=== PATIENT | female | born 1960 | race Caucasian/White ===

== ENCOUNTER 2016-11-17 19:07 | Emergency (ER) | payer OTHER ==
[2016-11-17 19:14] VITALS: TEMP 97.7
--- NOTE | 2016-11-17 19:30 | EDPHY ---
H & P Time Seen by Provider: 11/17/16 19:21 HPI/ROS: CHIEF COMPLAINT: Ladder impact to right maxilla HISTORY OF PRESENT ILLNESS: 56-year-old female no anticoagulant use arrives via private vehicle after she was taken down a ladder and impacted her right zygomatic arch/maxilla. She is complaining of blood in mouth, tenderness with chewing and biting down. No orbital injury. No visual disturbance. No loss of consciousness. No amnesia. No alcohol or drug use. No midline C-spine pain. No headache. No peripheral paresthesia, weakness, numbness. Tetanus is up-to- date REVIEW OF SYSTEMS: A ten point review of systems was performed and is negative with the exception of the items mentioned in the HPI PAST MEDICAL/SURGICAL HISTORY: no anticoagulant use, no relevant medical/ surgical history SOCIAL HISTORY: denies alcohol use at time of incident PHYSICAL EXAM 1) GENERAL: Well-developed, well-nourished, alert and oriented. Appears to be in no acute distress. Answering questions appropriately. 2) HEAD: Normocephalic, atraumatic 3) HEENT: Pupils equal, round, reactive to light bilaterally. Negative Horners. Nasopharynx, oropharynx, clear. No deformity or angulation of nose. No septal hematoma. Right zygomatic arch abrasion and superficial laceration. No rhinorrhea. No oral trauma. Ears bilaterally with normal tympanic membranes. No hemotympanum. No fluid or blood in the external auditory canal. No raccoon eyes. No Wong sign. She has tenderness to palpation of the right maxilla when she is biting down. Teeth are normally aligned. There is a 0.5 cm cm laceration at the junction of the right maxillary be you cool mucosa and gingival mucosal junction 4) NECK: No cervical collar is on. Posterior cervical spine is nontender, no stepoff, no effusion. Full range of motion which does not elicit any midline cervical spine pain, no posterior midline tenderness, no step-off. 5) LUNGS: Clear to auscultation bilaterally, no wheezes, no rhonchi, no retractions. No obvious signs of trauma. No chest wall pain. No flaring, no grunting. Moving symmetrically. No crepitus. 6) HEART: Regular rate and rhythm, 7) ABDOMEN: No guarding, no rebound, no focal tenderness, no peritoneal signs, no signs of trauma, no ecchymosis 8) MUSCULOSKELETAL: Moving all extremities, no focal areas of tenderness, no obvious trauma. 9) BACK: No midline vertebral tenderness, no fluctuance, no step-off, no obvious trauma, no visual or palpable abnormality. 10) SKIN: right cheek abrasion lacerationn DIFFERENTIAL DIAGNOSIS: [in no particular include but limited to orbital fracture, sinus fracture, zygomatic fracture Constitutional: Initial Vital Signs Temperature (C) 36.5 C 11/17/16 19:10 Heart Rate 60 11/17/16 19:10 Respiratory Rate 20 11/17/16 19:10 Blood Pressure 139/98 H 11/17/16 19:10 O2 Sat (%) 98 11/17/16 19:10 O2 Delivery Mode Room Air Allergies/Adverse Reactions: amoxicillin [Amoxicillin] Allergy (Intermediate, Verified 11/17/16 19:10) Hives Home Medications: Medication Instructions Recorded CALCIUM 11/17/16 Clindamycin HCl [Clindamycin] 300 mg PO TID 7 Days 11/17/16 oxyCODONE/APAP 5/325 [Percocet 1 tab PO Q6 #10 tab 11/17/16 5/325] MDM/Departure - MDM Imaging Results: Imaging Impressions Face CT 11/17/16 19:25 Impression: 1. Multiple fractures of the lizama of the right maxillary sinus, with comminution of the inferior orbital rim and wall, without displacement or definite entrapment of the inferior rectus muscle. 2. Nondisplaced fractures of the mid and posterior aspects of the right zygomatic arch respectively. Results called to Jose Ramon Zaldivar PA-C, at 8:00 p.m. Medications Given: Discontinued Medications Clindamycin (Cleocin 150 Mg Prepack#6) 1 btl TAKEHOME EDNOW ONE PRN Reason: Protocol Stop: 11/17/16 21:18 Last Admin: 11/17/16 21:20 Dose: 1 btl Oxycodone/Acetaminophen (Percocet 5/325mg Prepack#4) 1 btl TAKEHOME EDNOW ONE Stop: 11/17/16 21:18 Last Admin: 11/17/16 21:21 Dose: 1 btl ED Course/Re-evaluation: 8:20 p.m.: Care and management in consultation with secondary supervising physician Dr Garcia . 8:29 p.m.: Phone consultation with on-call ENT Dr. Marylou Verdin recommended no nose blowing. Patient restarting clindamycin as she is penicillin allergic. Recommended patient should follow up in the office on 11/23/2016. I recommended patient apply cold compresses and sleep with head of bed slightly elevated. - Depart Disposition: Home, Routine, Self-Care Clinical Impression: Zygomatic arch fracture Qualifiers: Encounter type: initial encounter Fracture type: closed Laterality: right Qualified Code(s): S02.40EA - Zygomatic fracture, right side, initial encounter for closed fracture Orbital floor fracture Qualifiers: Encounter type: initial encounter Fracture type: open Laterality: right Qualified Code(s): S02.31XB - Fracture of orbital floor, right side, initial encounter for open fracture Maxillary sinus fracture Qualifiers: Encounter type: initial encounter Fracture type: open Qualified Code(s): S02.401B - Maxillary fracture, unspecified side, initial encounter for open fracture Condition: Good Instructions: Clindamycin (By mouth), Oxycodone/Acetaminophen (By mouth), Facial Fracture (ED) Additional Instructions: Keep head of bed elevated, keep cold compresses on the area, DO NOT BLOW YOUR NOSE, take antibiotics as directed Prescriptions: Clindamycin HCl [Clindamycin] 300 mg PO TID 7 Days oxyCODONE/APAP 5/325 [Percocet 5/325] 1 tab PO Q6 #10 tab Referrals: Marylou Verdin MD [Medical Doctor] - 11/23/16
[2016-11-17] MEDS ORDERED: CLINDAMYCIN 150MG PREPACK#6 BTL TAKEHOME ONE (21:17)
[2016-11-17] MEDS ORDERED: OXYCODONE/APAP 5/325MG PREPACK#4 BTL TAKEHOME ONE (21:17)
[2016-11-17 21:37] VITALS: BP 149/91; PULSE 59; RESP 16; O2SAT 100
== END 2016-11-17 21:37 | disposition home or self-care (01) ==
DX: S02.40EA Zygomatic fracture, right side, initial encounter for closed fracture (principal); S02.31XB Fracture of orbital floor, right side, initial encounter for open fracture; S02.401B Maxillary fracture, unspecified side, initial encounter for open fracture; W22.8XXA Striking against or struck by other objects, initial encounter

== ENCOUNTER → 2017-02-07 | Outpatient (CLI) | payer OTHER | LOC: FIMAGING 14:27 | PROVIDERS: ATTEND Obstetrics & Gynecology | DX: Z12.31 Encounter for screening mammogram for malignant neoplasm of breast (principal) | CPT/HCPCS: G0202 ==

== ENCOUNTER → 2017-07-18 | Outpatient (CLI) | payer OTHER | LOC: FIMAGING 08:25 | PROVIDERS: ATTEND Internal Medicine Hematology & Oncology | DX: Z12.9 Encounter for screening for malignant neoplasm, site unspecified (principal); Z85.79 Personal history of other malignant neoplasms of lymphoid, hematopoietic and related tissues ==

== ENCOUNTER → 2017-10-18 | Outpatient (CLI) | payer OTHER ==
[~2017-10-18] MED LIST: GADOBUTROL 10 ML VIAL IVP ONE
== END ==
LOC: FIMAGING 08:52
PROVIDERS: ATTEND Internal Medicine Hematology & Oncology
DX: Z12.89 Encounter for screening for malignant neoplasm of other sites (principal); M48.061 Spinal stenosis, lumbar region without neurogenic claudication; M51.26 Other intervertebral disc displacement, lumbar region; C90.00 Multiple myeloma not having achieved remission
CPT/HCPCS: 82565-PO; A9585

== ENCOUNTER → 2018-01-13 | Outpatient (CLI) | payer OTHER | LOC: FIMAGING 13:51 | PROVIDERS: ATTEND Internal Medicine Hematology & Oncology | DX: Z12.31 Encounter for screening mammogram for malignant neoplasm of breast (principal) ==

== ENCOUNTER → 2018-02-23 | Outpatient (CLI) | payer OTHER | LOC: FIMAGING 09:24 | PROVIDERS: ATTEND Obstetrics & Gynecology | DX: Z12.31 Encounter for screening mammogram for malignant neoplasm of breast (principal); Z80.3 Family history of malignant neoplasm of breast ==